=== PATIENT | male | born 1995 | race Caucasian/White ===

== ENCOUNTER → 2017-07-16 | Outpatient (CLI) | payer MEDICAID ==
[2017-07-16 17:49] LABS: BASO % 0.8 % (0.0-1.0); EOS # 0.1 10^3/uL (0.0-0.50); IMMATURE GRANULOCYTE % 0.2 % (0-0); LYMPH # 1.9 10^3/uL (1.5-6.5); LYMPH % 37.7 % (24.0-44.0); MEAN CORPUSCULAR HGB CONC 32.9 g/dl (32.0-36.5); MEAN CORPUSCULAR VOLUME 88.2 fl (80.0-96.0); MONO # 0.3 10^3/uL (0.0-0.8); MONO % 6.3 % (0.0-5.0); NEUTROPHILS # 2.8 10^3/uL (1.8-7.7); PLATELET COUNT, AUTOMATED 268 10^3/uL (150-450); RED CELL DISTRIBUTION WIDTH 12.4 % (11.5-14.5); WHITE BLOOD COUNT 5.1 10^3/uL (4.0-10.0)
[2017-07-16 20:13] LABS: ALBUMIN 3.9 GM/DL (3.2-5.2); ALBUMIN/GLOBULIN RATIO 1.26 (1.00-1.93); ALKALINE PHOSPHATASE 135 U/L (45-117); ALT/SGPT 51 U/L (12-78); ANION GAP 7 MEQ/L (8-16); AST/SGOT 27 U/L (15-37); BILIRUBIN,TOTAL 0.4 MG/DL (0.2-1.0); BLOOD UREA NITROGEN 14 MG/DL (7-18); CALCIUM LEVEL 9.1 MG/DL (8.5-10.1); CARBON DIOXIDE LEVEL 26 MEQ/L (21-32); CHLORIDE LEVEL 110 MEQ/L (98-107); CHOLESTEROL LEVEL 193 MG/DL (<200); CREATININE FOR GFR 0.94 MG/DL (0.70-1.30); GLUCOSE, FASTING 91 MG/DL (70-105); SODIUM LEVEL 143 MEQ/L (136-145); TRIGLYCERIDES LEVEL 240 MG/DL (<150)
== END ==
LOC: M WUC 08:13
PROVIDERS: ATTEND Nurse Practitioner Psychiatric/Mental Health
DX: F31.73 Bipolar disorder, in partial remission, most recent episode manic (principal)

== ENCOUNTER → 2019-05-25 | Outpatient (REF) | payer MEDICAID ==
[2019-05-25 17:27] LABS: ALT/SGPT 105 U/L (12-78); BILIRUBIN,TOTAL 0.3 MG/DL (0.2-1.0); BLOOD UREA NITROGEN 12 MG/DL (7-18); CALCIUM LEVEL 9.6 MG/DL (8.5-10.1); CARBON DIOXIDE LEVEL 25 MEQ/L (21-32); CHLORIDE LEVEL 108 MEQ/L (98-107); CHOLESTEROL LEVEL 224 MG/DL (<200); CREATININE FOR GFR 0.93 MG/DL (0.70-1.30); FREE T4 1.01 NG/DL (0.76-1.46); GLOMERULAR FILTRATION RATE > 60.0 (>60); GLUCOSE, FASTING 93 MG/DL (70-100); HDL CHOLESTEROL 32 MG/DL (>40); LDL CHOLESTEROL 154 MG/DL (<100); NON-HDL-C 192 MG/DL; POTASSIUM SERUM 4.2 MEQ/L (3.5-5.1); SODIUM LEVEL 141 MEQ/L (136-145); TOTAL PROTEIN 7.4 GM/DL (6.4-8.2); TRIGLYCERIDES LEVEL 189 MG/DL (<150)
[2019-05-25 17:28] LABS: BASO % 0.5 % (0.0-1.0); EOS # 0.1 10^3/uL (0.0-0.50); EOS % 2.2 % (0.0-3.0); HEMATOCRIT 42.9 % (42.0-52.0); HEMOGLOBIN 14.2 g/dl (13.5-17.5); LYMPH # 1.8 10^3/uL (1.5-6.5); LYMPH % 32.4 % (24.0-44.0); MEAN CORPUSCULAR HEMOGLOBIN 27.8 pg (27.0-33.0); MEAN CORPUSCULAR HGB CONC 33.1 g/dl (32.0-36.5); MONO # 0.4 10^3/uL (0.0-0.8); MONO % 6.6 % (0.0-5.0); NEUTROPHILS # 3.1 10^3/uL (1.8-7.7); NEUTROPHILS % 57.6 % (36.0-66.0); PLATELET COUNT, AUTOMATED 284 10^3/uL (150-450); RED BLOOD COUNT 5.11 10^6/uL (4.30-6.10); TOTAL 25(OH) VITAMIN D 29.2 NG/ML (30.0-100.0); WHITE BLOOD COUNT 5.5 10^3/uL (4.0-10.0)
[2019-05-25 18:09] LABS: HEMOGLOBIN A1c 5.8 %
== END ==
LOC: M LAB REF 16:29
PROVIDERS: ATTEND Nurse Practitioner Family
DX: Z13.9 Encounter for screening, unspecified (principal)

== ENCOUNTER → 2019-06-13 | Outpatient (CLI) | payer MEDICAID ==
--- NOTE | 2019-06-13 09:04 | REP ---
Abdominal right upper quadrant ultrasound for elevated liver enzymes: There is no cholelithiasis, gallbladder wall thickening or pericholecystic fluid. There is no intrahepatic or extrahepatic biliary duct dilatation. The common biliary duct measures 5.1 mm in diameter. The liver is enlarged with the right lobe measuring 21.9 cm craniocaudad in the midclavicular line. The hepatic parenchyma is diffusely heterogeneous compatible with hepatocellular disease such as hepato steatosis. There are no focal hepatic masses. The visualized pancreatic parenchyma is unremarkable. The right kidney is normal size measuring 11.5 x 5.5 x 4.4 cm. There is no right renal calculus, hydronephrosis, mass or cyst. There is no right upper quadrant ascites. Impression: Enlarged liver with heterogeneous echotexture compatible with hepatocellular disease such as hepato steatosis. Electronically Signed by Mark Tolentino MD 06/13/2019 08:56 A
== END ==
LOC: M RAD 07:28
PROVIDERS: ATTEND Nurse Practitioner Family
DX: R94.5 Abnormal results of liver function studies (principal)

== ENCOUNTER → 2019-09-05 | Outpatient (REF) | payer MEDICAID ==
[2019-09-05 15:47] LABS: HEMOGLOBIN A1c 5.9 %
[2019-09-05 17:07] LABS: BLOOD UREA NITROGEN 18 MG/DL (7-18); CARBON DIOXIDE LEVEL 25 MEQ/L (21-32); CHLORIDE LEVEL 108 MEQ/L (98-107); CREATININE FOR GFR 0.95 MG/DL (0.70-1.30); GLOMERULAR FILTRATION RATE > 60.0 (>60); GLUCOSE, FASTING 101 MG/DL (70-100); POTASSIUM SERUM 4.2 MEQ/L (3.5-5.1); SODIUM LEVEL 140 MEQ/L (136-145)
[2019-09-05 17:08] LABS: ALT/SGPT 93 U/L (12-78); BILIRUBIN,TOTAL 0.3 MG/DL (0.2-1.0); CALCIUM LEVEL 9.9 MG/DL (8.5-10.1); TRIGLYCERIDES LEVEL 217 MG/DL (<150)
[2019-09-05 17:09] LABS: CHOLESTEROL LEVEL 241 MG/DL (<200); CHOLESTEROL RISK RATIO 7.303 (<5); HDL CHOLESTEROL 33 MG/DL (>40); LDL CHOLESTEROL 164.6 MG/DL (<100); NON-HDL-C 208 MG/DL; TOTAL PROTEIN 7.6 GM/DL (6.4-8.2)
== END ==
LOC: M LAB REF 13:19
PROVIDERS: ATTEND Nurse Practitioner Family
DX: R94.5 Abnormal results of liver function studies (principal); R73.03 Prediabetes

== ENCOUNTER → 2019-12-10 | Outpatient (REF) | payer MEDICAID ==
[2019-12-10 13:05] LABS: BASO % 0.6 % (0.0-1.0); EOS # 0.1 10^3/uL (0.0-0.5); EOS % 1.9 % (0.0-3.0); HEMATOCRIT 42.9 % (42.0-52.0); HEMOGLOBIN 13.8 g/dl (13.5-17.5); LYMPH # 2.4 10^3/uL (1.5-5.0); LYMPH % 35.8 % (24.0-44.0); MEAN CORPUSCULAR HEMOGLOBIN 26.6 pg (27.0-33.0); MEAN CORPUSCULAR HGB CONC 32.2 g/dl (32.0-36.5); MEAN CORPUSCULAR VOLUME 82.7 fl (80.0-96.0); MONO # 0.5 10^3/uL (0.0-0.8); MONO % 7.8 % (0.0-5.0); NEUTROPHILS # 3.6 10^3/uL (1.5-8.5); NEUTROPHILS % 53.6 % (36.0-66.0); PLATELET COUNT, AUTOMATED 285 10^3/uL (150-450); RED BLOOD COUNT 5.19 10^6/uL (4.30-6.10); WHITE BLOOD COUNT 6.7 10^3/uL (4.0-10.0)
[2019-12-10 13:08] LABS: ALBUMIN 3.9 GM/DL (3.2-5.2); ALT/SGPT 96 U/L (12-78); BILIRUBIN,TOTAL 0.4 MG/DL (0.2-1.0); BLOOD UREA NITROGEN 14 MG/DL (7-18); CALCIUM LEVEL 9.2 MG/DL (8.5-10.1); CARBON DIOXIDE LEVEL 27 MEQ/L (21-32); CHLORIDE LEVEL 106 MEQ/L (98-107); CHOLESTEROL LEVEL 230 MG/DL (<200); CHOLESTEROL RISK RATIO 6.571 (<5); CREATININE FOR GFR 0.97 MG/DL (0.70-1.30); GLOMERULAR FILTRATION RATE > 60.0 (>60); GLUCOSE, FASTING 95 MG/DL (70-100); HDL CHOLESTEROL 35 MG/DL (>40); LDL CHOLESTEROL 154 MG/DL (<100); NON-HDL-C 195 MG/DL; POTASSIUM SERUM 4.2 MEQ/L (3.5-5.1); SODIUM LEVEL 139 MEQ/L (136-145); TOTAL PROTEIN 7.5 GM/DL (6.4-8.2); TRIGLYCERIDES LEVEL 204 MG/DL (<150)
== END ==
LOC: M LAB REF 12:52
PROVIDERS: ATTEND Nurse Practitioner Family
DX: R94.5 Abnormal results of liver function studies (principal); E78.1 Pure hyperglyceridemia; E78.00 Pure hypercholesterolemia, unspecified; R73.03 Prediabetes

== ENCOUNTER → 2020-03-12 | Outpatient (REF) | payer MEDICAID ==
[2020-03-12 12:53] LABS: BASO % 0.6 % (0.0-1.0); EOS # 0.1 10^3/uL (0.0-0.5); EOS % 1.7 % (0.0-3.0); HEMATOCRIT 43.3 % (42.0-52.0); HEMOGLOBIN 14.2 g/dl (13.5-17.5); LYMPH # 2.1 10^3/uL (1.5-5.0); MEAN CORPUSCULAR HEMOGLOBIN 26.8 pg (27.0-33.0); MEAN CORPUSCULAR HGB CONC 32.8 g/dl (32.0-36.5); MEAN CORPUSCULAR VOLUME 81.9 fl (80.0-96.0); MONO # 0.5 10^3/uL (0.0-0.8); MONO % 6.9 % (0.0-5.0); NEUTROPHILS # 3.8 10^3/uL (1.5-8.5); NEUTROPHILS % 58.5 % (36.0-66.0); PLATELET COUNT, AUTOMATED 276 10^3/uL (150-450); RED BLOOD COUNT 5.29 10^6/uL (4.30-6.10); WHITE BLOOD COUNT 6.6 10^3/uL (4.0-10.0)
[2020-03-12 13:17] LABS: ALBUMIN 3.8 GM/DL (3.2-5.2); ALT/SGPT 80 U/L (12-78); BILIRUBIN,TOTAL 0.3 MG/DL (0.2-1.0); BLOOD UREA NITROGEN 16 MG/DL (7-18); CALCIUM LEVEL 8.9 MG/DL (8.5-10.1); CARBON DIOXIDE LEVEL 25 MEQ/L (21-32); CHLORIDE LEVEL 107 MEQ/L (98-107); CHOLESTEROL LEVEL 214 MG/DL (<200); CHOLESTEROL RISK RATIO 6.687 (<5); CREATININE FOR GFR 0.99 MG/DL (0.70-1.30); GLOMERULAR FILTRATION RATE > 60.0 (>60); GLUCOSE, FASTING 98 MG/DL (70-100); HDL CHOLESTEROL 32 MG/DL (>40); LDL CHOLESTEROL 132 MG/DL (<100); NON-HDL-C 182 MG/DL; POTASSIUM SERUM 4.4 MEQ/L (3.5-5.1); SODIUM LEVEL 138 MEQ/L (136-145); TOTAL PROTEIN 7.2 GM/DL (6.4-8.2); TRIGLYCERIDES LEVEL 250 MG/DL (<150)
[2020-03-12 13:40] LABS: HEMOGLOBIN A1c 5.6 %
== END ==
LOC: M LAB REF 11:51
PROVIDERS: ATTEND Nurse Practitioner Family
DX: R94.5 Abnormal results of liver function studies (principal); E78.1 Pure hyperglyceridemia; R73.03 Prediabetes; R19.7 Diarrhea, unspecified; Z00.00 Encounter for general adult medical examination without abnormal findings; Z13.9 Encounter for screening, unspecified; F32.9 Major depressive disorder, single episode, unspecified

== ENCOUNTER → 2020-06-25 | Outpatient (REF) | payer MEDICAID ==
[2020-06-25 13:22] LABS: BASO % 0.6 % (0.0-1.0); EOS # 0.1 10^3/uL (0.0-0.5); EOS % 1.9 % (0.0-3.0); HEMATOCRIT 43.3 % (42.0-52.0); LYMPH # 2.3 10^3/uL (1.5-5.0); LYMPH % 37.3 % (24.0-44.0); MEAN CORPUSCULAR HEMOGLOBIN 26.7 pg (27.0-33.0); MEAN CORPUSCULAR HGB CONC 32.3 g/dl (32.0-36.5); MEAN CORPUSCULAR VOLUME 82.5 fl (80.0-96.0); MONO # 0.4 10^3/uL (0.0-0.8); MONO % 6.5 % (0.0-5.0); NEUTROPHILS # 3.4 10^3/uL (1.5-8.5); NEUTROPHILS % 53.4 % (36.0-66.0); PLATELET COUNT, AUTOMATED 247 10^3/uL (150-450); RED BLOOD COUNT 5.25 10^6/uL (4.30-6.10); WHITE BLOOD COUNT 6.3 10^3/uL (4.0-10.0)
[2020-06-25 13:33] LABS: ALBUMIN 3.7 GM/DL (3.2-5.2); ALT/SGPT 85 U/L (12-78); BILIRUBIN,TOTAL 0.4 MG/DL (0.2-1.0); BLOOD UREA NITROGEN 17 MG/DL (7-18); CALCIUM LEVEL 9.4 MG/DL (8.5-10.1); CARBON DIOXIDE LEVEL 24 MEQ/L (21-32); CHLORIDE LEVEL 108 MEQ/L (98-107); CHOLESTEROL LEVEL 239 MG/DL (<200); CHOLESTEROL RISK RATIO 7.468 (<5); CREATININE FOR GFR 0.95 MG/DL (0.70-1.30); GLOMERULAR FILTRATION RATE > 60.0 (>60); GLUCOSE, FASTING 96 MG/DL (70-100); HDL CHOLESTEROL 32 MG/DL (>40); LDL CHOLESTEROL 158 MG/DL (<100); NON-HDL-C 207 MG/DL; POTASSIUM SERUM 4.5 MEQ/L (3.5-5.1); SODIUM LEVEL 138 MEQ/L (136-145); TOTAL PROTEIN 7.4 GM/DL (6.4-8.2); TRIGLYCERIDES LEVEL 245 MG/DL (<150)
[2020-06-25 15:17] LABS: HEMOGLOBIN A1c 5.6 %
== END ==
LOC: M LAB REF 12:14
PROVIDERS: ATTEND Nurse Practitioner Family
DX: E78.1 Pure hyperglyceridemia (principal); R73.03 Prediabetes; E78.00 Pure hypercholesterolemia, unspecified; R94.5 Abnormal results of liver function studies

== ENCOUNTER → 2021-02-25 | Outpatient (CLI) | payer MEDICAID ==
[2021-02-25 11:51] LABS: BILIRUBIN,DIRECT 0.2 MG/DL (0.0-0.2); BILIRUBIN,TOTAL 0.5 MG/DL (0.2-1.0); PERCENT SATURATION 17.2 % (19.7-50.0); TOTAL PROTEIN 7.8 GM/DL (6.4-8.2)
[2021-02-27 02:07] LABS: ANTI DOUBLE STRAND-DNA AB <1 IU/mL (0-9); ANTI-SMOOTH MUSCLE ANTIBODY 9 Units (0-19); ANTINUCLEAR ANTIBODIES DIRECT Positive (Negative); CERULOPLASMIN 26.2 mg/dL (16.0-31.0); HEPATITIS A IgG TOTAL Positive (Negative); HEPATITIS B CORE ANTIBODY IGG Negative (Negative); LIVER-KIDNEY MICROSOMAL ABY <20.1 Units (0.0-20.0); RNP ANTIBODIES 1.1 AI (0.0-0.9); SJOGREN'S ANTI SS-A <0.2 AI (0.0-0.9); SJOGREN'S ANTI SS-B 0.5 AI (0.0-0.9); SMITH ANTIBODIES <0.2 AI (0.0-0.9)
== END ==
LOC: M LAB 10:21
PROVIDERS: ATTEND Internal Medicine Gastroenterology
DX: R94.5 Abnormal results of liver function studies (principal)

== ENCOUNTER → 2022-06-17 | Outpatient (REF) | LOC: M EMP 09:42 | PROVIDERS: ATTEND Family Medicine | DX: Z20.822 Contact with and (suspected) exposure to COVID-19 (principal) ==

== ENCOUNTER → 2022-06-21 | Outpatient (REF) | LOC: M EMP 09:41 | PROVIDERS: ATTEND Family Medicine | DX: Z20.822 Contact with and (suspected) exposure to COVID-19 (principal) ==

== ENCOUNTER → 2022-11-08 | Outpatient (REF) | payer MEDICAID ==
[2022-11-08 17:40] LABS: CHOLESTEROL RISK RATIO 4.61 (<5); LDL CHOLESTEROL 125.2 MG/DL (<100)
[2022-11-08 18:06] LABS: HEMOGLOBIN A1c 5.6 % (4.0-6.0)
== END ==
LOC: M LAB REF 16:16
PROVIDERS: ATTEND Nurse Practitioner Family
DX: E78.00 Pure hypercholesterolemia, unspecified (principal); R73.03 Prediabetes

== ENCOUNTER 2023-01-30 22:58 | Emergency (ER) | payer MEDICAID ==
[~2023-01-30] VITALS: Ht 180.3 cm; Wt 100.6 kg
[2023-01-30] MEDS ORDERED: PALI1TAB4 (23:18)
[2023-01-30] MEDS ORDERED: CLON-412 (23:18)
[2023-01-30] MEDS ORDERED: GUAN2TAB PO (23:18)
[2023-01-30] MEDS ORDERED: ASHW300C2 PO (23:18)
[2023-01-30] MEDS ORDERED: TRAZ-252 (23:18)
[2023-01-31] MEDS ORDERED: NEOSPORIN TOP OINT 15GM TOP STA (07:02)
[2023-01-31 07:16] VITALS: BP 118/75
[2023-01-31] MEDS ORDERED: ISOVUE-370 76% 100ML VIAL As Ordered ONE (09:23)
== END 2023-01-31 07:21 | disposition home or self-care (01) ==
LOC: M ED 22:58
DX: S90.411A Abrasion, right great toe, initial encounter (principal); W22.09XA Striking against other stationary object, initial encounter; Y92.019 Unspecified place in single-family (private) house as the place of occurrence of the external cause; Y93.01 Activity, walking, marching and hiking; Y99.8 Other external cause status; F90.9 Attention-deficit hyperactivity disorder, unspecified type; F31.9 Bipolar disorder, unspecified; F41.9 Anxiety disorder, unspecified; G47.00 Insomnia, unspecified; F84.0 Autistic disorder; Z88.2 Allergy status to sulfonamides; Z88.8 Allergy status to other drugs, medicaments and biological substances; Z79.899 Other long term (current) drug therapy
CPT/HCPCS: 73630; 99283; Q9967

== ENCOUNTER → 2023-04-26 | Outpatient (REF) | payer MEDICAID ==
[~2023-04-26] MED LIST: ASHW300C2 PO; CLON-412; GUAN2TAB PO; PALI1TAB4; TRAZ-252
[2023-04-26 13:28] LABS: ALBUMIN 3.9 G/DL (3.2-5.2); ALKALINE PHOSPHATASE 107 U/L (46-116); ALT/SGPT 35 U/L (7.0-40); AST/SGOT 20 U/L (<34); BILIRUBIN,TOTAL 0.4 MG/DL (0.3-1.2); BLOOD UREA NITROGEN 19 MG/DL (9-23); CALCIUM LEVEL 9.3 MG/DL (8.5-10.1); CARBON DIOXIDE LEVEL 25 MMOL/L (20-31); CHLORIDE LEVEL 108 MMOL/L (98-107); CHOLESTEROL LEVEL 193 MG/DL (<200); CHOLESTEROL RISK RATIO 5.05 (<5); CREATININE FOR GFR 0.88 MG/DL (0.70-1.30); GLOMERULAR FILTRATION RATE > 60.0 (>60); GLUCOSE, FASTING 90 MG/DL (60-100); HDL CHOLESTEROL 38.2 MG/DL (>40); LDL CHOLESTEROL 130.8 MG/DL (<100); NON-HDL-C 154.8 MG/DL; POTASSIUM SERUM 4.4 MMOL/L (3.5-5.1); SODIUM LEVEL 142 MMOL/L (136-145); THYROID STIMULATING HORMONE 1.286 uIU/ML (0.55-4.78); TOTAL PROTEIN 6.9 G/DL (5.7-8.2); TRIGLYCERIDES LEVEL 120 MG/DL (<150)
[2023-04-26 13:29] LABS: HEMATOCRIT 44.5 % (42.0-52.0); HEMOGLOBIN 14.7 g/dl (13.5-17.5); MEAN CORPUSCULAR HEMOGLOBIN 28.8 pg (27.0-33.0); MEAN CORPUSCULAR VOLUME 87.3 fl (80.0-96.0); PLATELET COUNT, AUTOMATED 241 10^3/uL (150-450); WHITE BLOOD COUNT 5.6 10^3/uL (4.0-10.0)
[2023-04-26 13:55] LABS: HEMOGLOBIN A1c 5.4 % (4.0-6.0)
== END ==
LOC: M LAB REF 12:13
PROVIDERS: ATTEND Nurse Practitioner Family
DX: R73.03 Prediabetes (principal); E55.9 Vitamin D deficiency, unspecified; E78.00 Pure hypercholesterolemia, unspecified

== ENCOUNTER → 2023-08-01 | Outpatient (REF) | LOC: M EMP 11:28 | PROVIDERS: ATTEND Family Medicine | DX: Z11.52 Encounter for screening for COVID-19 (principal) ==

== ENCOUNTER → 2024-05-14 | Outpatient (REF) | payer MEDICAID ==
[2024-05-15 16:03] LABS: ANA PATTERN Nuclear, Speckled (NEGATIVE); ANA SCREEN, IFA POSITIVE (NEGATIVE)
== END ==
LOC: M LAB REF 11:42
PROVIDERS: ATTEND Nurse Practitioner Family
DX: L70.0 Acne vulgaris (principal); E55.9 Vitamin D deficiency, unspecified

== ENCOUNTER → 2024-05-29 | Outpatient (REF) | payer MEDICAID ==
[2024-05-29 17:40] LABS: C REACTIVE PROTEIN QUANTITATIV < 0.40 MG/DL (<1.0)
[2024-05-29 17:44] LABS: BLOOD UREA NITROGEN 18 MG/DL (9-23); CALCIUM LEVEL 9.3 MG/DL (8.5-10.1); CARBON DIOXIDE LEVEL 32 MMOL/L (20-31); CHLORIDE LEVEL 105 MMOL/L (98-107); CHOLESTEROL LEVEL 187 MG/DL (<200); CHOLESTEROL RISK RATIO 4.98 (<5); CREATININE FOR GFR 0.87 MG/DL (0.70-1.30); GLOMERULAR FILTRATION RATE > 60.0 (>60); GLUCOSE, FASTING 90 MG/DL (60-100); HDL CHOLESTEROL 37.5 MG/DL (>40); LDL CHOLESTEROL 113.3 MG/DL (<100); NON-HDL-C 149.5 MG/DL; POTASSIUM SERUM 4.7 MMOL/L (3.5-5.1); RHEUMATOID FACTOR QUANT 5.2 IU/ML (<14); SODIUM LEVEL 139 MMOL/L (136-145); TRIGLYCERIDES LEVEL 181 MG/DL (<150)
[2024-05-29 17:47] LABS: THYROID STIMULATING HORMONE 1.592 uIU/ML (0.55-4.78)
[2024-06-01 23:47] LABS: SSA SJOGRENS A <1.0 NEG AI (<1.0 NEG); SSB SJOGRENS B <1.0 NEG AI (<1.0 NEG)
[2024-06-02 03:18] LABS: CYCLIC CITRULLINATED PEPTIDE < 16 UNITS (<20)
[2024-06-05 13:27] LABS: HLA-B27 Negative (Negative)
[2024-06-06 15:39] LABS: ANTI DS-DNA AB NEGATIVE (NEGATIVE)
== END ==
LOC: M LAB REF 16:28
PROVIDERS: ATTEND Nurse Practitioner Family
DX: R74.8 Abnormal levels of other serum enzymes (principal); Z68.33 Body mass index [BMI] 33.0-33.9, adult; E78.5 Hyperlipidemia, unspecified; R76.8 Other specified abnormal immunological findings in serum

== ENCOUNTER → 2024-06-29 | Outpatient (REF) | LOC: M EMP 08:28 | PROVIDERS: ATTEND Family Medicine | DX: Z11.52 Encounter for screening for COVID-19 (principal) ==

== ENCOUNTER 2024-08-09 14:47 | Emergency (ER) | payer MEDICAID ==
[~2024-08-09] VITALS: Ht 177.8 cm; Wt 97.9 kg
[2024-08-09] MEDS ORDERED: ATOM40CA9 (15:09)
[2024-08-09] MEDS ORDERED: MIRT-10 (15:09)
[2024-08-09] MEDS ORDERED: ARIP30TA38 (15:09)
[2024-08-09 15:12] VITALS: TEMP 96.9
[2024-08-09] MEDS ORDERED: DEBR6.5S4 OTIC (16:46)
[2024-08-09 17:03] VITALS: BP 120/78; O2SAT 100
== END 2024-08-09 17:04 | disposition home or self-care (01) ==
LOC: M ED 14:47
DX: H61.23 Impacted cerumen, bilateral (principal); Z88.2 Allergy status to sulfonamides; Z88.8 Allergy status to other drugs, medicaments and biological substances; Z79.899 Other long term (current) drug therapy

== ENCOUNTER → 2024-09-05 | Outpatient (CLI) | payer MEDICAID ==
[~2024-09-05] MED LIST changes: +ARIP30TA38; +ATOM40CA9; +DEBR6.5S4 OTIC; +MIRT-10
[2024-09-05 11:09] LABS: ALBUMIN 4.2 G/DL (3.2-5.2); ALKALINE PHOSPHATASE 96 U/L (40-129); ALT/SGPT 39 U/L (7.0-40); AST/SGOT 23 U/L (<34); BILIRUBIN,TOTAL 0.6 MG/DL (0.3-1.2); BLOOD UREA NITROGEN 20 MG/DL (9-23); CALCIUM LEVEL 10.1 MG/DL (8.5-10.1); CARBON DIOXIDE LEVEL 29 MMOL/L (20-31); CHLORIDE LEVEL 106 MMOL/L (98-107); CREATININE FOR GFR 0.91 MG/DL (0.70-1.30); GLOMERULAR FILTRATION RATE > 60.0 (>60); GLUCOSE, FASTING 97 MG/DL (60-100); LITHIUM LEVEL 0.32 MMOL/L (1.0-1.20); POTASSIUM SERUM 4.7 MMOL/L (3.5-5.1); SODIUM LEVEL 142 MMOL/L (136-145); TOTAL PROTEIN 7.5 G/DL (5.7-8.2)
[2024-09-05 11:10] LABS: THYROID STIMULATING HORMONE 1.319 uIU/ML (0.55-4.78)
== END ==
LOC: M EKG 09:28
PROVIDERS: ATTEND Nurse Practitioner Psychiatric/Mental Health
DX: F43.20 Adjustment disorder, unspecified (principal)

== ENCOUNTER → 2025-01-03 | Outpatient (REF) ==
[2025-01-03 13:12] LABS: SOFIA COVID ANTIGEN NEGATIVE (NEGATIVE)
== END ==
LOC: M EMP 12:53
PROVIDERS: ATTEND Family Medicine
DX: Z01.89 Encounter for other specified special examinations (principal)

== ENCOUNTER → 2025-07-18 | Outpatient (REF) | LOC: M EMP 14:32 | PROVIDERS: ATTEND Family Medicine | DX: Z11.52 Encounter for screening for COVID-19 (principal) ==

== ENCOUNTER → 2025-08-29 | Outpatient (REF) | payer BC | LOC: M SFHCRHEU 10:06 | PROVIDERS: ATTEND Internal Medicine | DX: R76.89 Other specified abnormal immunological findings in serum (principal); Z86.39 Personal history of other endocrine, nutritional and metabolic disease; R70.0 Elevated erythrocyte sedimentation rate ==